=== PATIENT | female | born 1965 | race African-American/Black ===

== ENCOUNTER → 2017-01-14 | Outpatient (CLI) | payer OTHER ==
[~2017-01-14] MED LIST: AMLO10 PO
[2017-01-14 13:10] LABS: BLOOD, URINE NEG (NEG); GLUCOSE,URINE NEG (NEG); HYALINE CAST, URINE 7 /lpf (RARE); KETONE, URINE NEG (NEG); MUCUS URINE FEW /lpf (OCC); NITRITE,URINE NEG (NEG); SQUAMOUS EPITHELIAL CELL URINE 1 /hpf (0-5); URINE COLOR YELLOW (YELLW/STRAW)
[2017-01-14 13:17] LABS: ALT (GPT) 28 U/L (10-53); ANION GAP 8 MEQ/L (5-15); AST (GOT) 30 U/L (15-37); AUTOMATED NEUTROPHIL # 4.3 TH/MM3 (1.8-7.7); BASOPHIL % 0.3 % (0.0-2.0); BLOOD UREA NITROGEN 16 MG/DL (7-18); CHLORIDE 100 MEQ/L (98-107); EOSINOPHIL # 0.2 TH/MM3 (0-0.4); EOSINOPHIL % 2.8 % (0.0-4.0); GLOMERULAR FILTRATION RATE 67 ML/MIN (>89); GLUCOSE,FASTING 117 MG/DL (74-99); HEMATOCRIT 38.2 % (35.0-46.0); HEMO FLAGS DIFF FINAL; LYMPH % 26.4 % (9.0-44.0); LYMPHOCYTE # 1.8 TH/MM3 (1.0-4.8); MEAN CELL VOLUME 91.9 FL (80.0-100.0); MEAN CORPUSCULAR HEMOGLOBIN 30.5 PG (27.0-34.0); MEAN CORPUSCULAR HGB CONC 33.2 % (32.0-36.0); MONO % 7.2 % (0.0-8.0); NEUT % 63.3 % (16.0-70.0); PLATELET COUNT 314 TH/MM3 (150-450); POTASSIUM 3.4 MEQ/L (3.5-5.1); RED BLOOD COUNT 4.16 MIL/MM3 (4.00-5.30); RED CELL DISTRIBUTION WIDTH 14.6 % (11.6-17.2); SODIUM (NA) 138 MEQ/L (136-145); TRANSFERRIN IRON PROFILE 251 MG/DL (200-360); WHITE BLOOD COUNT 6.8 TH/MM3 (4.0-11.0)
[2017-01-14 13:19] LABS: ALKALINE PHOSPHATASE 90 U/L (45-117); HDL CHOLESTEROL 75.5 MG/DL (40.0-60.0); LDL CHOLESTEROL 77 MG/DL (0-99); TOTAL BILIRUBIN ADULT 0.4 MG/DL (0.2-1.0)
== END ==
LOC: PLAB 08:13
PROVIDERS: ATTEND Family Medicine
DX: I10 Essential (primary) hypertension (principal); E78.4 Other hyperlipidemia; D64.9 Anemia, unspecified; Z12.11 Encounter for screening for malignant neoplasm of colon
CPT/HCPCS: 80053; 80061; 81001; 83540; 83550; 85025

== ENCOUNTER → 2017-02-22 | Outpatient (CLI) | payer OTHER ==
[2017-02-22 08:50] LABS: POTASSIUM 3.8 MEQ/L (3.5-5.1)
[2017-02-22 08:56] LABS: BICARBONATE 30.2 MEQ/L (21.0-32.0)
== END ==
LOC: PLAB 07:11
PROVIDERS: ATTEND Family Medicine
DX: R79.89 Other specified abnormal findings of blood chemistry (principal); E87.6 Hypokalemia
CPT/HCPCS: 80051; 82565

== ENCOUNTER → 2017-02-23 | Outpatient (CLI) | payer OTHER ==
[2017-02-23 17:35] LABS: ANION GAP 8 MEQ/L (5-15); AST (GOT) 18 U/L (15-37); BICARBONATE 31.3 MEQ/L (21.0-32.0); BLOOD UREA NITROGEN 10 MG/DL (7-18); CHLORIDE 103 MEQ/L (98-107); GLOMERULAR FILTRATION RATE 88 ML/MIN (>89); GLUCOSE,FASTING 100 MG/DL (74-99); POTASSIUM 3.7 MEQ/L (3.5-5.1); SODIUM (NA) 142 MEQ/L (136-145)
[2017-02-23 17:38] LABS: ALKALINE PHOSPHATASE 81 U/L (45-117); ALT (GPT) 22 U/L (10-53); TOTAL BILIRUBIN ADULT 0.4 MG/DL (0.2-1.0)
[2017-02-23 17:39] LABS: AUTOMATED NEUTROPHIL # 3.4 TH/MM3 (1.8-7.7); BASOPHIL % 0.3 % (0.0-2.0); EOSINOPHIL # 0.2 TH/MM3 (0-0.4); EOSINOPHIL % 2.7 % (0.0-4.0); HEMATOCRIT 37.8 % (35.0-46.0); HEMO FLAGS DIFF FINAL; LYMPHOCYTE # 1.7 TH/MM3 (1.0-4.8); MEAN CELL VOLUME 89.1 FL (80.0-100.0); MEAN CORPUSCULAR HEMOGLOBIN 28.7 PG (27.0-34.0); MEAN CORPUSCULAR HGB CONC 32.2 % (32.0-36.0); MONO % 5.7 % (0.0-8.0); NEUT % 60.3 % (16.0-70.0); PLATELET COUNT 346 TH/MM3 (150-450); RED BLOOD COUNT 4.24 MIL/MM3 (4.00-5.30); RED CELL DISTRIBUTION WIDTH 13.5 % (11.6-17.2); WHITE BLOOD COUNT 5.6 TH/MM3 (4.0-11.0)
== END ==
LOC: PLAB 14:11
PROVIDERS: ATTEND Family Medicine
DX: R51 Headache (principal)
CPT/HCPCS: 80053; 85025

== ENCOUNTER 2017-10-20 06:26 | Observation (INO) | payer OTHER ==
[~2017-10-20] VITALS: Ht 175.3 cm; Wt 209.0 kg
[2017-10-20] MEDS ORDERED: fentaNYL CITRATE 250 MCG/5 ML AMP ONE (06:51)
[2017-10-20] MEDS ORDERED: ACETAMINOPHEN 1000 MG/100 ML 100 ML IV ONE (06:51)
[2017-10-20] MEDS ORDERED: BUPIVACAINE/EPINEPHRINE 0.25% 50 ML VIAL ONE (06:59)
[2017-10-20] MEDS ORDERED: POVIDONE IODINE 5% (ANTISEPSIS KIT) 4 APPLICATIONS EACH NARE PRN (07:00)
[2017-10-20] MEDS ORDERED: LACTATED RINGER'S 1000 ML IV PRN (07:00)
[2017-10-20] MEDS ORDERED: METOPROLOL TARTRATE 25 MG TAB PO PRN (07:00)
[2017-10-20] MEDS ORDERED: CHLORHEXIDINE GLUCONATE 2 % 1 PACK (2 CLOTHS) TOPICAL PRN (07:00)
[2017-10-20] MEDS ORDERED: LISI-519 PO (07:32)
[2017-10-20] MEDS ORDERED: ceFAZolin 2 GM PREMIX 50 ML ONE (07:46)
[2017-10-20 08:18] LABS: AUTOMATED NEUTROPHIL # 3.9 TH/MM3 (1.8-7.7); BASOPHIL % 0.2 % (0.0-2.0); EOSINOPHIL # 0.1 TH/MM3 (0-0.4); EOSINOPHIL % 2.3 % (0.0-4.0); HEMATOCRIT 36.1 % (35.0-46.0); HEMOGLOBIN 11.7 GM/DL (11.6-15.3); LYMPH % 27.5 % (9.0-44.0); LYMPHOCYTE # 1.7 TH/MM3 (1.0-4.8); MEAN CELL VOLUME 91.9 FL (80.0-100.0); MEAN CORPUSCULAR HEMOGLOBIN 29.8 PG (27.0-34.0); MEAN CORPUSCULAR HGB CONC 32.4 % (32.0-36.0); MEAN PLATELET VOLUME 8.1 FL (7.0-11.0); MONO % 6.8 % (0.0-8.0); MONOCYTE # 0.4 TH/MM3 (0-0.9); NEUT % 63.2 % (16.0-70.0); PLATELET COUNT 294 TH/MM3 (150-450); RED BLOOD COUNT 3.93 MIL/MM3 (4.00-5.30); RED CELL DISTRIBUTION WIDTH 14.6 % (11.6-17.2); WHITE BLOOD COUNT 6.2 TH/MM3 (4.0-11.0)
[2017-10-20 08:22] LABS: TOTAL BILIRUBIN ADULT 0.4 MG/DL (0.2-1.0); TOTAL PROTEIN 7.7 GM/DL (6.4-8.2)
[2017-10-20 08:26] LABS: ALBUMIN 3.1 GM/DL (3.4-5.0); BICARBONATE 30.8 MEQ/L (21.0-32.0); CALCIUM 8.8 MG/DL (8.5-10.1); CREATININE 0.8 MG/DL (0.50-1.00); DIRECT BILIRUBIN ADULT 0.1 MG/DL (0.0-0.2); INDIRECT BILIRUBIN 0.3 MG/DL (0.0-0.8)
[2017-10-20] MEDS ORDERED: DO NOT ADM ANY ANTICOAGULANT DRUGS PRN (11:15)
--- NOTE | 2017-10-20 11:19 | HHI.PR ---
Immediate Post Op Note Procedure Date: Oct 20, 2017 Pre Op Diagnosis: symptomatic cholelithiasis Post Op Diagnosis: same Surgeon: Clyde Li MD Tight Rope Walker(s): see or sheet Procedure: lap matt Findings: distended gallbladder very large stones Complications: none Specimen(s) removed: gallbladder Estimated blood loss: 5cc Anesthesia: General Drains: None Patient to: PACU Patient Condition: Good Clyde Li MD Oct 20, 2017 11:19
[2017-10-20] MEDS ORDERED: ONDANSETRON HCL 4 MG/2 ML VIAL IV PUSH ONE (11:30)
[2017-10-20] MEDS ORDERED: oxyCODONE/ACETAMINOPHEN 5 MG/325 MG TAB PO PRN (11:30)
[2017-10-20] MEDS ORDERED: LACTATED RINGER'S 1000 ML INJ 1,000 ML IV ONE (12:00)
[2017-10-20] MEDS ORDERED: LIDOCAINE HCL 1% PF 5 ML SYRINGE OTHER ONE (12:00)
[2017-10-20] MEDS ORDERED: PROPOFOL 200 MG/20 ML AMP IV ONE (12:00)
[2017-10-20] MEDS ORDERED: ONDANSETRON HCL 4 MG/2 ML VIAL IV ONE (12:00)
[2017-10-20] MEDS ORDERED: ROCURONIUM INJ 50 MG/5 ML SYRINGE IV PUSH ONE (12:00)
[2017-10-20] MEDS ORDERED: DEXAMETHASONE SOD PHOS 4 MG/ML VIAL IV ONE (12:00)
[2017-10-20] MEDS ORDERED: NEOSTIGMINE 5 MG/5 ML SYRINGE IV PUSH ONE (12:00)
[2017-10-20] MEDS ORDERED: PHENYLEPH/NS 1000 MCG/10 ML SYR IV ONE (12:00)
[2017-10-20] MEDS ORDERED: GLYCOPYRROLATE 1 MG/5 ML SYRINGE IV PUSH ONE (12:00)
[2017-10-20] MEDS ORDERED: STERILE WATER FOR INJECTION 20 ML VIAL IV ONE (12:00)
[2017-10-20] MEDS ORDERED: VECURONIUM BROMIDE 20 MG VIAL IV ONE (12:00)
[2017-10-20] MEDS ORDERED: ePHEDrine/NS 25 MG/5 ML SYRINGE IV ONE (12:00)
[2017-10-20] MEDS ORDERED: *morphine SULFATE 4 MG/ML PERIprocedure ONLY ONE ×2 (12:10→12:58)
[2017-10-20] MEDS ORDERED: *RESP: ALBUTEROL 2.5 MG/3 ML NEB (PRN) PERIprocedural Use ONLY NEB ONE (12:47)
[2017-10-20] MEDS ORDERED: RESP: ALBUTEROL 2.5 MG/3 ML NEB (PRN) NEB (15:00)
[2017-10-20] MEDS ORDERED: MORPHINE SULFATE 2 MG/ML INJ IV PUSH PRN (15:00)
[2017-10-20] MEDS ORDERED: SODIUM CHLORIDE 0.9% FLUSH 10 ML FLUSH IV FLUSH PRN (15:00)
[2017-10-20 16:00] VITALS: BP 134/72; PULSE 73; RESP 18; TEMP 96.9; O2SAT 96
[2017-10-20] MEDS ORDERED: ACETAMINOPHEN/HYDROcodone 325 MG/5 MG TAB PO PRN ×2 (16:45)
--- NOTE | 2017-10-20 17:01 | RADRPT ---
EXAM DATE/TIME: 10/20/2017 13:19 [facility] COMPARISON: CHEST PA & LAT, March 27, 2016, 7:27. INDICATIONS : Short of breath post Lap [place] MEDICAL HISTORY : Hypertension. Diabetes mellitus type II. SURGICAL HISTORY : Cholecystectomy. ENCOUNTER: Initial ACUITY: 1 day PAIN SCORE: 0/10 LOCATION: chest FINDINGS: The heart is at the upper limits of normal in size. The lungs are clear without evidence of pneumotho rax. The osseous structures are intact. CONCLUSION: 1. No pneumothorax identified. The lungs are clear. Armando Cain MD on October 20, 2017 at 16:58 Board Certified Radiologist. This report was verified electronically.
[2017-10-20] MEDS: SODIUM CHLORIDE 0.9% FLUSH 10 ML FLUSH IV FLUSH SCH (19:32)
[2017-10-20 20:00] VITALS: BP 133/66; PULSE 89; RESP 18; TEMP 98.9; O2SAT 97
--- NOTE | 2017-10-20 20:34 | EKG ---
Date Performed: 10/20/2017 Time Performed: 06:49:43 PTAGE: 52 years EKG: Sinus rhythm NONSPECIFIC ST & T-WAVE ABNORMALITY ABNORMAL ECG Since the prior tracing, there has been no signific ant change PREVIOUS TRACING : 03/27/2016 07.50 DOCTOR: Kosta Lion Interpretating Date/Time 10/20/2017 20:24:12
[2017-10-21] VITALS: BP 134/76; PULSE 82; RESP 19; TEMP 98.6; O2SAT 92
[2017-10-21 04:00] VITALS: BP 140/75; PULSE 81; RESP 18; TEMP 96.6; O2SAT 94
[2017-10-21 06:10] LABS: BICARBONATE 31.8 MEQ/L (21.0-32.0); CALCIUM 8.9 MG/DL (8.5-10.1); CREATININE 0.8 MG/DL (0.50-1.00)
[2017-10-21 06:21] LABS: AUTOMATED NEUTROPHIL # 15.3 TH/MM3 (1.8-7.7); BASOPHIL % 0.1 % (0.0-2.0); EOSINOPHIL % 0.1 % (0.0-4.0); HEMATOCRIT 37.5 % (35.0-46.0); HEMOGLOBIN 12.3 GM/DL (11.6-15.3); LYMPH % 4.3 % (9.0-44.0); LYMPHOCYTE # 0.7 TH/MM3 (1.0-4.8); MEAN CELL VOLUME 92.5 FL (80.0-100.0); MEAN CORPUSCULAR HEMOGLOBIN 30.3 PG (27.0-34.0); MEAN CORPUSCULAR HGB CONC 32.7 % (32.0-36.0); MEAN PLATELET VOLUME 8.3 FL (7.0-11.0); MONO % 3.1 % (0.0-8.0); MONOCYTE # 0.5 TH/MM3 (0-0.9); NEUT % 92.4 % (16.0-70.0); PLATELET COUNT 263 TH/MM3 (150-450); RED BLOOD COUNT 4.05 MIL/MM3 (4.00-5.30); RED CELL DISTRIBUTION WIDTH 14.5 % (11.6-17.2); WHITE BLOOD COUNT 16.6 TH/MM3 (4.0-11.0)
[2017-10-21 08:00] VITALS: BP 116/65; PULSE 80; RESP 18; TEMP 96.8; O2SAT 94
[2017-10-21 08:06] VITALS: O2SAT 94
[2017-10-21] MEDS: SODIUM CHLORIDE 0.9% FLUSH 10 ML FLUSH IV FLUSH SCH (08:22)
[2017-10-21] MEDS ORDERED: PANTOPRAZOLE SODIUM 40 MG VIAL IV PUSH SCH (09:00)
[2017-10-21] MEDS ORDERED: INFLUENZA VIRUS VACCINE (QUADRIVALENT) 0.5 ML SYR IM ONE (10:00)
[2017-10-21] MEDS ORDERED: PNEUMOCOCCAL POLYVALENT INJ 25 MCG/0.5 ML SYR IM ONE (10:00)
[2017-10-21 12:00] VITALS: BP 148/73; PULSE 82; RESP 19; TEMP 97.3; O2SAT 96
[2017-10-21 16:00] VITALS: BP 121/67; PULSE 83; RESP 19; TEMP 96.6
[2017-10-21] MEDS ORDERED: HYDR-3516 PO ×2 (16:24→16:27)
--- NOTE | 2017-10-21 16:24 | HHI.DS ---
Discharge Summary Admission Date Oct 20, 2017 at 13:12 Discharge Date: Oct 21, 2017 Admitting Diagnosis Brief History 52-year-old female status post laparoscopic cholecystectomy CBC/BMP: 10/21/17 0345 10/21/17 0345 Significant Findings Laboratory Tests Test 10/20/17 07:40 10/21/17 03:45 Red Blood Count 3.93 MIL/MM3 (4.00-5.30) Random Glucose 117 MG/DL (74-106) 108 MG/DL (74-106) Albumin 3.1 GM/DL (3.4-5.0) White Blood Count 16.6 TH/MM3 (4.0-11.0) Neutrophils (%) (Auto) 92.4 % (16.0-70.0) Lymphocytes (%) (Auto) 4.3 % (9.0-44.0) Neutrophils # (Auto) 15.3 TH/MM3 (1.8-7.7) Lymphocytes # (Auto) 0.7 TH/MM3 (1.0-4.8) Potassium Level 5.3 MEQ/L (3.5-5.1) PE at Discharge alert and awake Cardio: RRR Resp: CTAB Abd: lap sites c/d/i Hospital Course This is a 52 year old female POD1 laparoscopic cholecystectomy. The patient was able to tolerate a regular diet. The patient's pain was controlled using oral pain medications. She was fully weaned from nasal cannula oxygen. She will follow up in the office. Pt Condition on Discharge: Good Discharge Disposition: Discharge Home Discharge Instructions DIET: Follow Instructions for: As Tolerated, No Restrictions Activities you can perform: See Additionl Instruction Other Activity Instructions: no heavy lifting >15 lbs, ok to shower tomorrow no bath tub Lori Llanos Oct 21, 2017 16:24
--- NOTE | 2017-10-22 08:36 | MP ---
cc: CLYDE LI MD DATE OF SURGERY: 10/22/2017. PREOPERATIVE DIAGNOSIS: Symptomatic cholelithiasis. POSTOPERATIVE DIAGNOSIS: Symptomatic cholelithiasis. OPERATIVE PROCEDURE PERFORMED: Laparoscopic cholecystectomy SURGEON: Dr. Clyde Li. DIESEL ENGINE I PIPE FITTER: See OR sheet ANESTHESIA: General endotracheal anesthesia. FLUIDS: See anesthesia sheet. ESTIMATED BLOOD LOSS: 5 cc. DRAINS: None. COMPLICATIONS: None. WOUND CLASSIFICATION: Clean / contaminated. FINDINGS: Fatty liver. very large multiple gallstones within the gallbladder. SPECIMEN: Gallbladder. INDICATIONS FOR THE PROCEDURE: The patient is a 52-year-old female who presents with morbid obesity and symptomatic cholelithiasis. She has noted significant history of right upper quadrant pain that has been going on for some time now. Decision made for a laparoscopic cholecystectomy. DESCRIPTION OF THE PROCEDURE IN DETAIL: The patient was taken to the operating room suite and placed in the supine position. She was prepped and draped in the usual sterile fashion after induction with general endotracheal anesthesia. A brief time out was done stating the correct patient, procedure and surgical site and we were all in agreement with this. Attention first directed to the umbilicus superiorly. A 5 mm incision was made. Local anesthetic injected. The Visiport operative scope was introduced and placed into the abdomen safely. The abdomen was insufflated to 50 mm pneumoperitoneum. The cursory inspection showed no evidence of injury. The patient was placed in reverse Trendelenburg. Three other ports were placed: One 12 mm gastric followed by two right subcostal 5 mm ports. A fifth port was placed actually right lower quadrant. This was to assist in retraction. The patient did have a very large fatty liver and a very large omentum as well as distended gallbladder and multiple large gallstones. Fundus was grasped and retracted cephalad. Adhesions taken down the gallbladder. Gallbladder was mobilized to the infundibulum down to the cystic duct with hook electrocautery and [place] grasper. The cystic duct was dissected out and two clips were placed proximally and one distally and this was used to transect the cystic duct. The cystic artery was also identified. Two clips were placed proximally and bovie electrocautery used to transect the cystic artery. The cystic artery was taken off the gallbladder fossa with hook Bovie electrocautery. Hemostasis was obtained. Gallbladder was placed in the EndoCatch bag and removed from the abdomen in the epigastric port. Hemostasis was noted and a pretty significant fatty liver. The epigastric port was closed with #0 Vicryl x2 with a gore suture passer device. Local anesthetic injected. Pneumoperitoneum removed. The ports were removed. The ports were closed with 4-0 subcuticular and sterile dressing placed. The patient tolerated the procedure well with no intraoperative complications. All lap and instrument counts were correct at the end of the procedure. The patient was extubated and taken stable to the post-anesthesia care unit. MD ASTER Antunez/GUSTAVO /1:34 PM /8:21 AM
== END 2017-10-21 18:46 | disposition home or self-care (01) ==
LOC: HSDC 06:26 → HSDI 13:12 → N07A 15:47
PROVIDERS: ADMIT Surgery; ATTEND Surgery
DX: K80.10 Calculus of gallbladder with chronic cholecystitis without obstruction (principal); R06.02 Shortness of breath; R94.31 Abnormal electrocardiogram [ECG] [EKG]; I10 Essential (primary) hypertension; E11.9 Type 2 diabetes mellitus without complications
CPT/HCPCS: 00790; 47562; 71045; 80048; 80076; 85025; 88304; 93005; 94664; 96374; C9113; G0378; J0131; J0690; J1100; J2270; J2370; J2405; J2710; J3010; J7120; J7613

== ENCOUNTER 2017-11-02 01:06 | Inpatient (IN) | payer OTHER ==
[~2017-11-02] VITALS: Ht 175.3 cm; Wt 182.6 kg
[2017-11-02] VITALS (13 sets, daily range): BP systolic 129–208; BP diastolic 63–111; PULSE 60–85; RESP 18–24; TEMP 98.2–98.7; O2SAT 91–99
[~2017-11-02 01:06] MED LIST changes: -AMLO10 PO; +LISI-519 PO
[2017-11-02] MEDS ORDERED: SODIUM CHLORIDE 0.9% FLUSH 10 ML FLUSH IVF PRN (03:45)
--- NOTE | 2017-11-02 04:37 | RADRPT ---
EXAM DATE/TIME: 11/02/2017 04:05 [facility] COMPARISON: CHEST SINGLE AP, October 20, 2017, 13:19. INDICATIONS : Shortness of breath. MEDICAL HISTORY : Hypertension. Diabetes mellitus type II. SURGICAL HISTORY : None. ENCOUNTER: Initial ACUITY: 1 day PAIN SCORE: 0/10 LOCATION: Bilateral chest FINDINGS: A single view of the chest demonstrates the lungs to be symmetrically aerated without evidence of mas s, infiltrate or effusion. The cardiomediastinal contours are unremarkable. Osseous structures are intact. CONCLUSION: No acute disease. Hosea Lopez MD on November 02, 2017 at 4:35 Board Certified Radiologist. This report was verified electronically.
[2017-11-02 05:56] LABS: AUTOMATED NEUTROPHIL # 6.3 TH/MM3 (1.8-7.7); BASOPHIL % 0.5 % (0.0-2.0); EOSINOPHIL # 0.3 TH/MM3 (0-0.4); EOSINOPHIL % 2.7 % (0.0-4.0); HEMATOCRIT 36.5 % (35.0-46.0); HEMOGLOBIN 11.9 GM/DL (11.6-15.3); LYMPHOCYTE # 1.9 TH/MM3 (1.0-4.8); MEAN CELL VOLUME 91.4 FL (80.0-100.0); MEAN CORPUSCULAR HEMOGLOBIN 29.9 PG (27.0-34.0); MEAN CORPUSCULAR HGB CONC 32.8 % (32.0-36.0); MEAN PLATELET VOLUME 8.1 FL (7.0-11.0); MONO % 7.9 % (0.0-8.0); MONOCYTE # 0.7 TH/MM3 (0-0.9); NEUT % 67.9 % (16.0-70.0); PLATELET COUNT 306 TH/MM3 (150-450); RED BLOOD COUNT 3.99 MIL/MM3 (4.00-5.30); RED CELL DISTRIBUTION WIDTH 14.4 % (11.6-17.2); WHITE BLOOD COUNT 9.3 TH/MM3 (4.0-11.0)
--- NOTE | 2017-11-02 06:12 | PD ---
HPI . Respiratory symptoms Chief Complaint: Respiratory Symptoms Time Seen by Provider: 03:42 Travel History International Travel<30 days: No Contact w/Intl Traveler<30days: No Traveled to known affect area: No History of Present Illness HPI 52-year-old female status post recent laparoscopic cholecystectomy, complains of having right lower chest pain, sharp, worse with deep breath, with associated shortness of breath and air hunger. The patient also notes having right calf pain and some right lower extremity swelling recently as well. Denies fever chills sweats, denies cough. PFSH Past Medical History Narrative Medical Past medical history reviewed Cancer: No Cardiovascular Problems: Yes Diabetes: No Diminished Hearing: No Endocrine: No Genitourinary: No Hepatitis: No Hiatal Hernia: No Hypertension: Yes Immune Disorder: No Musculoskeletal: No Neurologic: No Psychiatric: No Reproductive: No Respiratory: No Immunizations Current: Yes Thyroid Disease: No Tetanus Vaccination: Unknown Influenza Vaccination: Yes ?: Not Past Surgical History Abdominal Surgery: No Cardiac Surgery: No Cholecystectomy: Yes Ear Surgery: No Endocrine Surgery: No Eye Surgery: No Genitourinary Surgery: Yes (lap matt) Gynecologic Surgery: Yes (Complete hysterectomy) Hysterectomy: Yes Joint Replacement: No Neurologic Surgery: Yes (Back surgery, ruptured disc lombar area (2001)) Oral Surgery: No Pacemaker: No Thoracic Surgery: No Other Surgery: Yes Social History Alcohol Use: No Tobacco Use: No Substance Use: No Allergies-Medications (Allergen,Severity, Reaction): Coded Allergies: No Known Allergies (Verified Allergy, Unknown, 11/02/17) Reported Meds & Prescriptions Reported Meds & Active Scripts Active Reported Lisinopril 5 Mg Tab 5 Mg PO DAILY Narrative Medication Allergies medications reviewed Review of Systems Except as stated in HPI: all other systems reviewed are Neg General / Constitutional: No: Fever Eyes: No: Visual changes HENT: No: Headaches Cardiovascular: Positive: Chest Pain or Discomfort Respiratory: Positive: Shortness of Breath Gastrointestinal: No: Abdominal Pain Genitourinary: No: Dysuria Musculoskeletal: Positive: Cramping, Edema, No: Pain Skin: No Rash Neurologic: No: Weakness Psychiatric: No: Depression Endocrine: No: Polydipsia Hematologic/Lymphatic: No: Easy Bruising Physical Exam Narrative GENERAL: Awake alert oriented 3 no acute distress. Vital signs afebrile normal and stable. Oxygen saturation 90-90% on room air. SKIN: Warm and dry. Color is normal the diaphoresis sinus or pallor HEAD: Atraumatic. Normocephalic. EYES: Pupils equal and round. No scleral icterus. No injection or drainage. ENT: No nasal bleeding or discharge. Mucous membranes pink and moist. NECK: Trachea midline. No JVD. Supple nontender full range of motion CARDIOVASCULAR: Regular rate and rhythm. S1-S2 no murmurs or gallops RESPIRATORY: No accessory muscle use. Clear to auscultation. Breath sounds equal bilaterally. GASTROINTESTINAL: Abdomen soft, non-tender, nondistended. Hepatic and splenic margins not palpable. Morbidly obese difficult exam MUSCULOSKELETAL: Extremities without clubbing, cyanosis, or edema. No obvious deformities. NEUROLOGICAL: Awake and alert. No obvious cranial nerve deficits. Motor grossly within normal limits. Five out of 5 muscle strength in the arms and legs. Normal speech. PSYCHIATRIC: Appropriate mood and affect; insight and judgment normal. Data Data Last Documented VS Vital Signs Date Time Temp Pulse Resp B/P (MAP) Pulse Ox O2 Delivery O2 Flow Rate FiO2 11/02/17 05:44 68 19 189/79 (115) 96 Room Air 11/02/17 01:13 98.7 Orders Orders Electrocardiogram (11/02/17 03:42) Ckmb (Isoenzyme) Profile (11/02/17 03:42) Complete Blood Count With Diff (11/02/17 03:42) Comprehensive Metabolic Panel (11/02/17 03:42) D-Dimer (11/02/17 03:42) Magnesium (Mg) (11/02/17 03:42) Prothrombin Time / Inr (Pt) (11/02/17 03:42) Act Partial Throm Time (Ptt) (11/02/17 03:42) Troponin I (11/02/17 03:42) Lipase (11/02/17 03:42) Chest, Single Ap (11/02/17 03:42) Ecg Monitoring (11/02/17 03:42) Bilateral Bp Monitoring (11/02/17 03:42) Iv Access Insert/Monitor (11/02/17 03:42) Oximetry (11/02/17 03:42) Sodium Chloride 0.9% Flush (Ns Flush) (11/02/17 03:45) CKMB (11/02/17 04:30) CKMB% (11/02/17 04:30) Ct Pulmonary Angiogram (11/02/17 ) Labs Laboratory Tests Test 11/02/17 04:30 White Blood Count 9.3 TH/MM3 Red Blood Count 3.99 MIL/MM3 Hemoglobin 11.9 GM/DL Hematocrit 36.5 % Mean Corpuscular Volume 91.4 FL Mean Corpuscular Hemoglobin 29.9 PG Mean Corpuscular Hemoglobin Concent 32.8 % Red Cell Distribution Width 14.4 % Platelet Count 306 TH/MM3 Mean Platelet Volume 8.1 FL Neutrophils (%) (Auto) 67.9 % Lymphocytes (%) (Auto) 21.0 % Monocytes (%) (Auto) 7.9 % Eosinophils (%) (Auto) 2.7 % Basophils (%) (Auto) 0.5 % Neutrophils # (Auto) 6.3 TH/MM3 Lymphocytes # (Auto) 1.9 TH/MM3 Monocytes # (Auto) 0.7 TH/MM3 Eosinophils # (Auto) 0.3 TH/MM3 Basophils # (Auto) 0.0 TH/MM3 CBC Comment DIFF FINAL Differential Comment Prothrombin Time 10.4 SEC Prothromb Time International Ratio 1.0 RATIO Activated Partial Thromboplast Time 25.3 SEC D-Dimer Quantitative (PE/DVT) 1.74 MG/L FEU Blood Urea Nitrogen 12 MG/DL Creatinine 0.89 MG/DL Random Glucose 107 MG/DL Total Protein 7.8 GM/DL Albumin 3.2 GM/DL Calcium Level 9.0 MG/DL Magnesium Level 2.2 MG/DL Alkaline Phosphatase 77 U/L Aspartate Amino Transf (AST/SGOT) 11 U/L Alanine Aminotransferase (ALT/SGPT) 11 U/L Total Bilirubin 0.6 MG/DL Sodium Level 140 MEQ/L Potassium Level 3.8 MEQ/L Chloride Level 102 MEQ/L Carbon Dioxide Level 29.8 MEQ/L Anion Gap 8 MEQ/L Estimat Glomerular Filtration Rate 80 ML/MIN Total Creatine Kinase 151 U/L Creatine Kinase MB 0.8 NG/ML Troponin I LESS THAN 0.02 NG/ML Lipase 78 U/L MDM Medical Decision Making Medical Screen Exam Complete: Yes Emergency Medical Condition: Yes Medical Record Reviewed: Yes Differential Diagnosis Shortness of breath, pleurisy, pulmonary embolus, calf strain, DVT Narrative Course EKG normal sinus rhythm at 70 bpm, diffusely flattened T waves, otherwise no ischemic changes Chest x-ray no acute infiltrates Laboratory examinations resulted, patient has positive d-dimer at 1.74. CT pulmonary angiogram Case signed out to oncoming ED attending, pending CT pulmonary angiogram Saroj Santana MD Nov 02, 2017 06:12
[2017-11-02 06:14] LABS: PROTHROMBIN TIME - PATIENT 10.4 SEC (9.8-11.6)
[2017-11-02 06:17] LABS: ALBUMIN 3.2 GM/DL (3.4-5.0); AST (GOT) 11 U/L (15-37); BICARBONATE 29.8 MEQ/L (21.0-32.0); BLOOD UREA NITROGEN 12 MG/DL (7-18); CHLORIDE 102 MEQ/L (98-107); CREATININE 0.89 MG/DL (0.50-1.00); GLOMERULAR FILTRATION RATE 80 ML/MIN (>89); GLUCOSE,RANDOM 107 MG/DL (74-106); MAGNESIUM 2.2 MG/DL (1.5-2.5); SODIUM (NA) 140 MEQ/L (136-145)
[2017-11-02 06:18] LABS: ALT (GPT) 11 U/L (10-53)
[2017-11-02 06:22] LABS: ALKALINE PHOSPHATASE 77 U/L (45-117); TOTAL BILIRUBIN ADULT 0.6 MG/DL (0.2-1.0); TOTAL PROTEIN 7.8 GM/DL (6.4-8.2); TROPONIN I LESS THAN 0.02 NG/ML (0.02-0.05)
[2017-11-02 06:31] LABS: D-DIMER 1.74 MG/L FEU (0.00-0.50)
[2017-11-02] MEDS ORDERED: IOHEXOL 350 MG/ML 10 ML VIAL (for RAD DIAG) IVCONTRAST ONE (07:36)
--- NOTE | 2017-11-02 07:50 | EKG ---
Date Performed: 11/02/2017 Time Performed: 05:18:00 PTAGE: 52 years EKG: Sinus rhythm NONSPECIFIC T-WAVE ABNORMALITY ABNORMAL ECG NO PREVIOUS TRACING DOCTOR: Nestor Aguilera Interpretating Date/Time 11/02/2017 07:49:34
--- NOTE | 2017-11-02 07:51 | RADRPT ---
EXAM DATE/TIME: 11/02/2017 07:29 [facility] COMPARISON: No previous studies available for comparison. INDICATIONS : Shortness of breath. IV CONTRAST: 79 cc Omnipaque 350 (iohexol) IV RADIATION DOSE: 10.89 CTDIvol (mGy) MEDICAL HISTORY : Cardiovascular disease. Hyperthyroidism. SURGICAL HISTORY : None. ENCOUNTER: Initial ACUITY: 1 day PAIN SCALE: 0/10 LOCATION: chest TECHNIQUE: Volumetric scanning of the chest was performed using a pulmonary embolism protocol MIP images were re constructed. Using automated exposure control and adjustment of the mA and/or kV according to patien t size, radiation dose was kept as low as reasonably achievable to obtain optimal diagnostic quality images. DICOM format image data is available electronically for review and comparison. Follow-up recommendations for detected pulmonary nodules are based at a minimum on nodule size and pa tient risk factors according to Fleischner Society Guidelines. FINDINGS: PULMONARY ARTERIES: There is a filling defect in the branch of the right pulmonary supplying the posterior right lower dustin ng. This characteristic of a pulmonary embolus. There is opacification involving the rest of the pulm onary arteries. LUNGS: There is focal parenchymal consolidation in the posterior right lower lung. Otherwise, the rest lung early are grossly clear. PLEURAE: There is no pleural thickening or pleural effusion. MEDIASTINUM: There is good visualization of the great vessels of the middle mediastinum. No evidence of mediastin al or hilar adenopathy/mass. MUSCULOSKELETAL: Within normal limits for patient age. MISCELLANEOUS: The visualized upper abdominal organs demonstrate no acute abnormality. CONCLUSION: 1. There is a filling defect in a branch of the right pulmonary artery feeding the posterior right lo wer lung characteristic of a pulmonary embolus. 2. Focal parenchymal consolidation in the posterior right lower lung. Given the above finding this ma ybe a focal pulmonary infarct. Modesto Fenton MD on November 02, 2017 at 7:45 Board Certified Radiologist. This report was verified electronically.
[2017-11-02] MEDS ORDERED: HEPARIN SODIUM - IV 10,000 UNITS/10 ML VIAL IV PUSH ONE (08:30)
[2017-11-02] MEDS: HEPARIN-D5W 25,000 U/250 ML 250 ML IV PRN ×2 (08:41→21:17)
--- NOTE | 2017-11-02 09:07 | PD ---
Physical Exam Narrative Patient signed out to me by Dr. Santana, please see his documentation for complete details. Briefly, patient is a 52 year old female who comes in complaining of SOB. She recently had gallbladder surgery and has been mostly in bed since then. Exam shows lungs CTA. Data Data Last Documented VS Vital Signs Date Time Temp Pulse Resp B/P (MAP) Pulse Ox O2 Delivery O2 Flow Rate FiO2 11/02/17 07:13 84 19 188/81 (116) 98 Nasal Cannula 2.00 11/02/17 01:13 98.7 Orders Orders Electrocardiogram (11/02/17 03:42) Ckmb (Isoenzyme) Profile (11/02/17 03:42) Complete Blood Count With Diff (11/02/17 03:42) Comprehensive Metabolic Panel (11/02/17 03:42) D-Dimer (11/02/17 03:42) Magnesium (Mg) (11/02/17 03:42) Prothrombin Time / Inr (Pt) (11/02/17 03:42) Act Partial Throm Time (Ptt) (11/02/17 03:42) Troponin I (11/02/17 03:42) Lipase (11/02/17 03:42) Chest, Single Ap (11/02/17 03:42) Ecg Monitoring (11/02/17 03:42) Bilateral Bp Monitoring (11/02/17 03:42) Iv Access Insert/Monitor (11/02/17 03:42) Oximetry (11/02/17 03:42) Sodium Chloride 0.9% Flush (Ns Flush) (11/02/17 03:45) CKMB (11/02/17 04:30) CKMB% (11/02/17 04:30) Ct Pulmonary Angiogram (11/02/17 ) Us Leg Venous Doppler (11/02/17 ) Iohexol 350 Inj (Omnipaque 350 Inj) (11/02/17 07:36) Heparin Inj (Heparin Inj) (11/02/17 08:30) Heparin-D5w 25,000 U/250 Ml (Heparin-D5w (11/02/17 08:30) Occult Blood (Hemoccult) Stool (11/02/17 08:24) Admit Order (Ed Use Only) (11/02/17 ) Labs Laboratory Tests Test 11/02/17 04:30 White Blood Count 9.3 TH/MM3 Red Blood Count 3.99 MIL/MM3 Hemoglobin 11.9 GM/DL Hematocrit 36.5 % Mean Corpuscular Volume 91.4 FL Mean Corpuscular Hemoglobin 29.9 PG Mean Corpuscular Hemoglobin Concent 32.8 % Red Cell Distribution Width 14.4 % Platelet Count 306 TH/MM3 Mean Platelet Volume 8.1 FL Neutrophils (%) (Auto) 67.9 % Lymphocytes (%) (Auto) 21.0 % Monocytes (%) (Auto) 7.9 % Eosinophils (%) (Auto) 2.7 % Basophils (%) (Auto) 0.5 % Neutrophils # (Auto) 6.3 TH/MM3 Lymphocytes # (Auto) 1.9 TH/MM3 Monocytes # (Auto) 0.7 TH/MM3 Eosinophils # (Auto) 0.3 TH/MM3 Basophils # (Auto) 0.0 TH/MM3 CBC Comment DIFF FINAL Differential Comment Prothrombin Time 10.4 SEC Prothromb Time International Ratio 1.0 RATIO Activated Partial Thromboplast Time 25.3 SEC D-Dimer Quantitative (PE/DVT) 1.74 MG/L FEU Blood Urea Nitrogen 12 MG/DL Creatinine 0.89 MG/DL Random Glucose 107 MG/DL Total Protein 7.8 GM/DL Albumin 3.2 GM/DL Calcium Level 9.0 MG/DL Magnesium Level 2.2 MG/DL Alkaline Phosphatase 77 U/L Aspartate Amino Transf (AST/SGOT) 11 U/L Alanine Aminotransferase (ALT/SGPT) 11 U/L Total Bilirubin 0.6 MG/DL Sodium Level 140 MEQ/L Potassium Level 3.8 MEQ/L Chloride Level 102 MEQ/L Carbon Dioxide Level 29.8 MEQ/L Anion Gap 8 MEQ/L Estimat Glomerular Filtration Rate 80 ML/MIN Total Creatine Kinase 151 U/L Creatine Kinase MB 0.8 NG/ML Troponin I LESS THAN 0.02 NG/ML Lipase 78 U/L MDM Supervised Visit with DEBBIE: No Narrative Course CTA is positive for a PE and possible pulmonary infarct. Patient started on Heparin and admitted for further management. Diagnosis Primary Impression: PE Admitting Information Admitting Physician Requests: Admit Scripts Apixaban (Eliquis) 5 Mg Tab 5 MG PO BID for PE for 30 Days, #60 TAB 3 Refills Prov: Dagoberto Tejada MD 11/04/17 Apixaban (Eliquis) 5 Mg Tab 10 MG PO BID for PE for 5 Days, #20 TAB Prov: Dagoberto Tejada MD 11/04/17 Oxygen (O2) (Oxygen (O2)) Device LITER IMELDA.CANULA CONTINUOUS for Prevent Hypoxemia, #2 Oxygen Concentrator Portable Gaseous 2 L/min via Nasal Canula Continuous For 99 months Prov: Dagoberto Tejada MD 11/04/17 Dina Layton MD Nov 02, 2017 09:07
[2017-11-02] MEDS ORDERED: SODIUM CHLORIDE 0.9% FLUSH 10 ML FLUSH IV FLUSH PRN (09:15)
[2017-11-02] MEDS ORDERED: NALOXONE HCL 0.4 MG/ML AMP IV PUSH PRN (09:15)
--- NOTE | 2017-11-02 09:29 | RADRPT ---
EXAM DATE/TIME: 11/02/2017 07:57 [facility] COMPARISON: No previous studies available for comparison. INDICATIONS : Right leg swelling. MEDICAL HISTORY : Hypertension. Ruptured disc lumbar. SURGICAL HISTORY : Cholecystectomy. Hysterectomy. Back surgery. ENCOUNTER: Initial ACUITY: 1 day PAIN SCORE: 10/10 LOCATION: Right leg. TECHNIQUE: Venous ultrasound of the leg was performed from the inguinal ligament to the proximal calf. Real-michael e, color Doppler and spectral tracing, compression and augmentation techniques were used. FINDINGS: There is normal compressibility of the deep venous system from the inguinal region to the proximal ca lf. No echogenic clot is seen in the lumen of the common femoral, femoral, popliteal, and posterior tibial veins. There is a normal response of the venous system to proximal and distal augmentation an d respiration. Popliteal cyst measuring 5.7 x 1.6 cm anechoic with no internal flow. CONCLUSION: Negative for deep venous thrombosis. Damon Morris MD on November 02, 2017 at 9:27 Board Certified Radiologist. This report was verified electronically.
[2017-11-02] MEDS ORDERED: MORPHINE SULFATE 4 MG/ML INJ IV PUSH ONE (09:30)
--- NOTE | 2017-11-02 11:37 | HHI.HP ---
HPI Service [facility] Primary Care Physician Paul Willoughby MD Admission Diagnosis PE, pulmonary infarct Diagnoses: Travel History International Travel<30 Days: No Contact w/Intl Traveler <30 Da: No Traveled to Known Affected Are: No History of Present Illness History from patient, ER physician communication, and review of medical records. Patient reported that on Tuesday, she started having right calf pain. She also has associated shortness of breath. Reports of right upper quadrant abdominal pain and right-sided chest pain when she takes a deep breath. She reports she has had cholecystectomy on October 20, 2017. She stayed overnight at the hospital. She has been home since discharge from hospital until yesterday for every 2017 when she returned back to work. She admits that for the past 10 days or so while she has been home, she has not been moving around much. Only one her right cough started having pain on Tuesday, she started moving around and walking around. In the emergency room, patient's blood pressure was somewhat high in the range of 170s over 90s. However by the time I see the patient, without any intervention, her blood pressure was 139/65. She did miss her home dose of lisinopril this morning. Review of Systems Except as stated in HPI: all other systems reviewed are Neg Past Family Social History Past Medical History Hypertension Obesity Past Surgical History cholecystectomy 10/20/17 hysterectomy back sx Allergies: Coded Allergies: No Known Allergies (Verified Allergy, Unknown, 11/02/17) Family History mother, htn, breast cancer maternal uncles and aunts, diabetic Social History never smoked no etoh abuse, no drugs abuse Physical Exam Vital Signs Vital Signs Date Time Temp Pulse Resp B/P (MAP) Pulse Ox O2 Delivery O2 Flow Rate FiO2 11/02/17 09:35 71 18 174/75 (108) 99 Nasal Cannula 2.00 11/02/17 07:13 84 19 188/81 (116) 98 Nasal Cannula 2.00 11/02/17 05:44 68 19 189/79 (115) 96 Room Air 11/02/17 03:54 79 20 184/79 (114) 96 Room Air 11/02/17 03:53 76 20 181/84 (116) 96 Room Air 11/02/17 03:52 20 96 Room Air 11/02/17 03:41 20 96 Room Air 11/02/17 01:53 77 20 199/111 (140) 97 11/02/17 01:13 98.7 85 24 208/105 (139) 93 Physical Exam GENERAL: This is a well-nourished, well-developed patient, in no apparent distress. Obese. SKIN: No rashes, ecchymoses or lesions. Cool and dry. HEAD: Atraumatic. Normocephalic. No temporal or scalp tenderness. EYES: No scleral icterus. No injection or drainage. ENT: Nose without bleeding, purulent drainage or septal hematoma. Airway patent. NECK: Trachea midline. No JVD CARDIOVASCULAR: Regular rate and rhythm without murmurs, gallops, or rubs. RESPIRATORY: Clear to auscultation. Breath sounds equal bilaterally. No wheezes , rales, or rhonchi. Shallow breathing due to pleuritic chest pain. GASTROINTESTINAL: Abdomen soft, non-tender, nondistended. . No guarding. MUSCULOSKELETAL: Extremities without clubbing, cyanosis, or edema. Right calf tenseness. NEUROLOGICAL: Awake and alert. Motor and sensory grossly within normal limits. Normal speech. Laboratory Laboratory Tests Test 11/02/17 04:30 White Blood Count 9.3 Red Blood Count 3.99 Hemoglobin 11.9 Hematocrit 36.5 Mean Corpuscular Volume 91.4 Mean Corpuscular Hemoglobin 29.9 Mean Corpuscular Hemoglobin Concent 32.8 Red Cell Distribution Width 14.4 Platelet Count 306 Mean Platelet Volume 8.1 Neutrophils (%) (Auto) 67.9 Lymphocytes (%) (Auto) 21.0 Monocytes (%) (Auto) 7.9 Eosinophils (%) (Auto) 2.7 Basophils (%) (Auto) 0.5 Neutrophils # (Auto) 6.3 Lymphocytes # (Auto) 1.9 Monocytes # (Auto) 0.7 Eosinophils # (Auto) 0.3 Basophils # (Auto) 0.0 CBC Comment DIFF FINAL Differential Comment Prothrombin Time 10.4 Prothromb Time International Ratio 1.0 Activated Partial Thromboplast Time 25.3 D-Dimer Quantitative (PE/DVT) 1.74 Blood Urea Nitrogen 12 Creatinine 0.89 Random Glucose 107 Total Protein 7.8 Albumin 3.2 Calcium Level 9.0 Magnesium Level 2.2 Alkaline Phosphatase 77 Aspartate Amino Transf (AST/SGOT) 11 Alanine Aminotransferase (ALT/SGPT) 11 Total Bilirubin 0.6 Sodium Level 140 Potassium Level 3.8 Chloride Level 102 Carbon Dioxide Level 29.8 Anion Gap 8 Estimat Glomerular Filtration Rate 80 Total Creatine Kinase 151 Creatine Kinase MB 0.8 Troponin I LESS THAN 0.02 Lipase 78 Result Diagram: 11/02/170 11/02/17 0430 Imaging Last 48 hours Impressions Chest X-Ray 11/02/17 0342 Signed Impressions: Service Date/Time: Thursday, November 02, 2017 04:05 - CONCLUSION: No acute disease. Hosea Lopez MD Lower Extremity Ultrasound 11/02/17 0000 Signed Impressions: Service Date/Time: Thursday, November 02, 2017 07:57 - CONCLUSION: Negative for deep venous thrombosis. Damon Morris MD CT Angiography 11/02/17 0000 Signed Impressions: Service Date/Time: Thursday, November 02, 2017 07:29 - CONCLUSION: 1. There is a filling defect in a branch of the right pulmonary artery feeding the posterior right lower lung characteristic of a pulmonary embolus. 2. Focal parenchymal consolidation in the posterior right lower lung. Given the above finding this maybe a focal pulmonary infarct. Modesto Fenton MD [place] VTE Risk Assessment Caprini VTE Risk Assessment: Mod/High Risk (score >= 2) Caprini Risk Assessment Model Point Value = 1 Point Value = 2 Point Value = 3 Point Value = 5 Age 41-60 Minor surgery BMI > 25 kg/m2 Swollen legs Varicose veins or History of unexplained or recurrent spontaneous Oral contraceptives or hormone replacement Sepsis (< 1 month) Serious lung disease, including pneumonia (< 1 month) Abnormal pulmonary function Acute myocardial infarction Congestive heart failure (< 1 month) History of inflammatory bowel disease Medical patient at bed rest Age 61-74 Arthroscopic surgery Major open surgery (> 45 min) Laparoscopic surgery (> 45 min) Malignancy Confined to bed (> 72 hours) Immobilizing plaster cast Central venous access Age >= 75 History of VTE Family history of VTE Factor V Leiden Prothrombin [id number] Lupus anticoagulant Anticardiolipin antibodies Elevated serum homocysteine Heparin-induced thrombocytopenia Other congenital or acquired thrombophilia Stroke (< 1 month) Elective arthroplasty Hip, pelvis, or leg fracture Acute spinal cord injury (< 1 month) Prophylaxis Regimen Total Risk Factor Score Risk Level Prophylaxis Regimen 0-1 Low Early ambulation 2 Moderate Order ONE of the following: *Sequential Compression Device (SCD) *Heparin 5000 units SQ BID 3-4 Higher Order ONE of the following medications: *Heparin 5000 units SQ TID *Enoxaparin/Lovenox 40 mg SQ daily (WT < 150 kg, CrCl > 30 mL/min) *Enoxaparin/Lovenox 30 mg SQ daily (WT < 150 kg, CrCl > 10-29 mL/min) *Enoxaparin/Lovenox 30 mg SQ BID (WT < 150 kg, CrCl > 30 mL/min) AND/OR *Sequential Compression Device (SCD) 5 or more Highest Order ONE of the following medications: *Heparin 5000 units SQ TID (Preferred with Epidurals) *Enoxaparin/Lovenox 40 mg SQ daily (WT < 150 kg, CrCl > 30 mL/min) *Enoxaparin/Lovenox 30 mg SQ daily (WT < 150 kg, CrCl > 10-29 mL/min) *Enoxaparin/Lovenox 30 mg SQ BID (WT < 150 kg, CrCl > 30 mL/min) AND *Sequential Compression Device (SCD) Assessment and Plan Assessment and Plan Impression: Acute pulmonary embolism Recent surgery on October 20, 2017 cholecystectomy Morbid obesity with impaired ambulatory status post op Hypertension Plan: Patient was started on heparin drip in ER. Give him dose of lisinopril 5 mg by mouth one dose now. Telemetry monitoring. Patient is explained in detail regarding anticoagulation choices. She has not made up her mind yet. We will provide her with Coumadin book. She is explained that I will start her on to Eliquis starting this evening. She can think about it for now and if she rather takes a different anticoagulants, and to let the nurse know. I have discussed with ER skilled nursing case manager regarding Eliquis pricing for patient's insurance but they were not able to find out how much it would cost. start eliquis 10mg po twice a day for 7 days, followed by 5 mg by mouth twice a day. Patient is advised regarding weight reduction and possibility of doing gastric sleeve versus gastric bypass. Patient is considering about these options as well because she was advised for her PCP and surgeon Dr. Li She is informed of risk of morbid obesity which includes future congestive heart failure/sleep apnea/uncontrolled hypertension/diabetes/CVA/MIs/cancers. Discussed Condition With Patient, ER physician Physician Certification 2 Midnight Certification Type: Admission for Inpatient Services Order for Inpatient Services The services are ordered in accordance with Medicare regulations or non- Medicare payer requirements, as applicable. In the case of services not specified as inpatient-only, they are appropriately provided as inpatient services in accordance with the 2-midnight benchmark. Estimated LOS (days): 2 days is the estimated time the patient will need to remain in the hospital, assuming treatment plan goals are met and no additional complications. Post-Hospital Plan: Home Lamar Taylor MD Nov 02, 2017 11:37
[2017-11-02] MEDS ORDERED: LISINOPRIL 5 MG TAB PO ONE (12:00)
[2017-11-02] MEDS ORDERED: ACETAMINOPHEN 325 MG TAB PO PRN (16:45)
[2017-11-02] MEDS: SODIUM CHLORIDE 0.9% FLUSH 10 ML FLUSH IV FLUSH SCH (21:08)
[2017-11-02] MEDS: APIXABAN 5 MG TABLET PO SCH (21:08)
[2017-11-02] MEDS ORDERED: MORPHINE SULFATE 2 MG/ML INJ IV PUSH PRN (23:00)
[2017-11-03] VITALS (15 sets, daily range): BP systolic 124–168; BP diastolic 50–82; PULSE 66–99; RESP 18; TEMP 97.1–98.8; O2SAT 92–98
[2017-11-03 08:30] LABS: AUTOMATED NEUTROPHIL # 5.6 TH/MM3 (1.8-7.7); BASOPHIL % 0.5 % (0.0-2.0); EOSINOPHIL # 0.2 TH/MM3 (0-0.4); EOSINOPHIL % 2.6 % (0.0-4.0); HEMATOCRIT 36.8 % (35.0-46.0); HEMOGLOBIN 11.9 GM/DL (11.6-15.3); LYMPH % 20.5 % (9.0-44.0); LYMPHOCYTE # 1.7 TH/MM3 (1.0-4.8); MEAN CELL VOLUME 91.9 FL (80.0-100.0); MEAN CORPUSCULAR HEMOGLOBIN 29.6 PG (27.0-34.0); MEAN CORPUSCULAR HGB CONC 32.2 % (32.0-36.0); MEAN PLATELET VOLUME 8.6 FL (7.0-11.0); MONO % 7.7 % (0.0-8.0); MONOCYTE # 0.6 TH/MM3 (0-0.9); NEUT % 68.7 % (16.0-70.0); PLATELET COUNT 294 TH/MM3 (150-450); RED BLOOD COUNT 4.01 MIL/MM3 (4.00-5.30); RED CELL DISTRIBUTION WIDTH 14.4 % (11.6-17.2); WHITE BLOOD COUNT 8.1 TH/MM3 (4.0-11.0)
[2017-11-03 08:47] LABS: BICARBONATE 30.5 MEQ/L (21.0-32.0); CALCIUM 9.1 MG/DL (8.5-10.1); CREATININE 0.78 MG/DL (0.50-1.00)
[2017-11-03] MEDS: SODIUM CHLORIDE 0.9% FLUSH 10 ML FLUSH IV FLUSH SCH ×2 (09:00→21:23)
[2017-11-03] MEDS: APIXABAN 5 MG TABLET PO SCH ×2 (09:10→21:20)
[2017-11-03] MEDS: LISINOPRIL 5 MG TAB PO SCH (09:11)
[2017-11-03] MEDS ORDERED: PNEUMOCOCCAL POLYVALENT INJ 25 MCG/0.5 ML SYR IM ONE (10:00)
--- NOTE | 2017-11-03 13:22 | HHI.PR ---
Subjective Remarks occasional mild pleuritic pain no fever, no hemoptysis Objective Vitals Vital Signs Date Time Temp Pulse Resp B/P (MAP) Pulse Ox O2 Delivery O2 Flow Rate FiO2 11/03/17 12:20 98.2 71 18 124/76 (92) 92 11/03/17 08:25 98.0 77 18 145/65 (91) 97 11/03/17 04:50 97.1 79 18 138/50 (79) 96 11/03/17 04:18 Nasal Cannula 2.00 11/03/17 04:00 97 11/03/17 00:34 98.0 78 18 165/73 (103) 96 11/03/17 00:12 98.0 85 18 168/82 (110) 98 11/03/17 00:00 Nasal Cannula 2.00 11/03/17 00:00 99 11/02/17 21:04 98.2 71 18 129/63 (85) 91 11/02/17 20:15 Nasal Cannula 2.00 11/02/17 20:00 60 11/02/17 16:22 98.2 74 18 152/69 (96) 96 11/02/17 15:36 81 18 153/72 (99) 98 I/O 11/02/17 11/02/17 11/02/17 11/03/17 11/03/17 11/03/17 06:59 14:59 22:59 06:59 14:59 22:59 Intake Total 240 ml 480 ml Balance 240 ml 480 ml Intake Oral 240 ml 480 ml # Voids 2 # Bowel Movements 0 Result Diagram: 11/03/17 0647 11/03/17 0647 Imaging Last Impressions Chest X-Ray 11/02/17 0342 Signed Impressions: Service Date/Time: Thursday, November 02, 2017 04:05 - CONCLUSION: No acute disease. Hosea Lopez MD Lower Extremity Ultrasound 11/02/17 0000 Signed Impressions: Service Date/Time: Thursday, November 02, 2017 07:57 - CONCLUSION: Negative for deep venous thrombosis. Damon Morris MD CT Angiography 11/02/17 0000 Signed Impressions: Service Date/Time: Thursday, November 02, 2017 07:29 - CONCLUSION: 1. There is a filling defect in a branch of the right pulmonary artery feeding the posterior right lower lung characteristic of a pulmonary embolus. 2. Focal parenchymal consolidation in the posterior right lower lung. Given the above finding this maybe a focal pulmonary infarct. Modesto Fenton MD Objective Remarks awake and alert, no acute distress obese anicteric lungs- no rales regular rular rhythm abdomen soft, non tender extremiteis no edema, no calf selling or tenderness A/P Assessment and Plan Impression: Acute pulmonary embolism Recent surgery on October 20, 2017 cholecystectomy Morbid obesity with impaired ambulatory status post op Hypertension -started eliquis 10mg po twice a day for 7 days 11/02 , followed by 5 mg by mouth twice a day. -Lisinopril 5 mg po daily ANIL- suspect patient working on weight reduction family states she does snores at night- no apneic episodes noted advised ff up with PCP - Dr. Liban Willoughby for sleep studies Patient is advised regarding weight reduction and possibility of doing gastric sleeve versus gastric bypass.- on admission Patient is considering about these options as well because she was advised for her PCP and surgeon Dr. Li She is informed of risk of morbid obesity which includes future congestive heart failure/sleep apnea/uncontrolled hypertension/diabetes/CVA/MIs/cancers. Discussed Condition With Patient and family travis ask CM to asist with Horace MONTEZ today if arranged Dagoberto Tejada MD Nov 03, 2017 13:22
[2017-11-04] VITALS: PULSE 68
[2017-11-04] MEDS ORDERED: MORPHINE SULFATE 2 MG/ML INJ IV PUSH ONE (00:15)
[2017-11-04 04:00] VITALS: PULSE 80
[2017-11-04 04:30] VITALS: BP 149/70; PULSE 73; RESP 20; TEMP 97.3; O2SAT 93
[2017-11-04 08:00] VITALS: BP_SYST 136; BP_SYST 155; BP_DIAS 62; BP_DIAS 67; PULSE 69; PULSE 77; RESP 14; RESP 18; TEMP 97.5; O2SAT 95; O2SAT 99
[2017-11-04] MEDS: APIXABAN 5 MG TABLET PO SCH (08:40)
[2017-11-04] MEDS: LISINOPRIL 5 MG TAB PO SCH (08:40)
[2017-11-04] MEDS: SODIUM CHLORIDE 0.9% FLUSH 10 ML FLUSH IV FLUSH SCH (08:42)
[2017-11-04 09:56] VITALS: O2SAT 94
[2017-11-04] MEDS ORDERED: OXYGENDME NAS.CANULA (11:20)
[2017-11-04 12:00] VITALS: BP 148/68; PULSE 71; RESP 18; TEMP 97.7; O2SAT 97
--- NOTE | 2017-11-04 12:01 | HHI.PR ---
Subjective Remarks resting comfortably ambulated with aptient- desaturated but appears comfortable- qualifies for home 02 discussed with her need sleep studies Objective Vitals Vital Signs Date Time Temp Pulse Resp B/P (MAP) Pulse Ox O2 Delivery O2 Flow Rate FiO2 11/04/17 09:56 94 Nasal Cannula 2.00 11/04/17 08:00 97.5 77 14 155/67 (96) 99 11/04/17 08:00 97.5 69 18 136/62 (86) 95 11/04/17 07:15 94 Nasal Cannula 2.00 11/04/17 04:30 97.3 73 20 149/70 (96) 93 11/04/17 04:00 80 11/04/17 04:00 Nasal Cannula 2.00 11/04/17 00:00 68 11/03/17 23:47 98.3 77 18 127/62 (83) 94 11/03/17 21:30 Nasal Cannula 2.00 11/03/17 20:50 98.8 75 18 135/63 (87) 98 11/03/17 20:00 76 11/03/17 18:38 94 Nasal Cannula 2.00 11/03/17 16:05 98.3 72 18 136/65 (88) 98 11/03/17 16:00 66 11/03/17 13:23 94 Nasal Cannula 2.00 11/03/17 12:20 98.2 71 18 124/76 (92) 92 11/03/17 12:00 69 I/O 11/03/17 11/03/17 11/03/17 11/04/17 11/04/17 11/04/17 07:00 15:00 23:00 07:00 15:00 23:00 Intake Total 480 ml 600 ml 960 ml Balance 480 ml 600 ml 960 ml Intake Oral 480 ml 600 ml 960 ml # Voids 2 2 2 # Bowel Movements 0 0 0 Result Diagram: 11/03/17 0647 11/03/17 0647 Imaging Last Impressions Chest X-Ray 11/02/17 0342 Signed Impressions: Service Date/Time: Thursday, November 02, 2017 04:05 - CONCLUSION: No acute disease. Hosea Lopez MD Lower Extremity Ultrasound 11/02/17 0000 Signed Impressions: Service Date/Time: Thursday, November 02, 2017 07:57 - CONCLUSION: Negative for deep venous thrombosis. Damon Morris MD CT Angiography 11/02/17 0000 Signed Impressions: Service Date/Time: Thursday, November 02, 2017 07:29 - CONCLUSION: 1. There is a filling defect in a branch of the right pulmonary artery feeding the posterior right lower lung characteristic of a pulmonary embolus. 2. Focal parenchymal consolidation in the posterior right lower lung. Given the above finding this maybe a focal pulmonary infarct. Modesto Fenton MD Objective Remarks awake and alert, no acute distress, on NC obese anicteric lungs- no rales regular rhythm abdomen soft, non tender extremities no edema, no calf selling or tenderness A/P Assessment and Plan Impression: Acute pulmonary embolism Recent surgery on October 20, 2017 cholecystectomy Morbid obesity with impaired ambulatory status post op Hypertension -started eliquis 10mg po twice a day for 7 days till 11/09 , followed by 5 mg by mouth twice a day.starting 11/10 -Lisinopril 5 mg po daily ANIL- suspect patient working on weight reduction family states she does snores at night- no apneic episodes noted advised ff up with PCP - Dr. Liban Willoughby for sleep studies Patient is advised regarding weight reduction and possibility of doing gastric sleeve versus gastric bypass.- on admission Patient is considering about these options as well because she was advised for her PCP and surgeon Dr. Li She is informed of risk of morbid obesity which includes future congestive heart failure/sleep apnea/uncontrolled hypertension/diabetes/CVA/MIs/cancers. Discussed Condition With Patient and family travis ask CM to asist with Horace MONTEZ today if arranged Dagoberto Tejada MD Nov 04, 2017 12:01
[2017-11-04] MEDS ORDERED: APIX5TAB PO (12:05)
[2017-11-09] MEDS ORDERED: APIXABAN 5 MG TABLET PO SCH (21:00)
[2017-11-12] MEDS ORDERED: APIXABAN 5 MG TABLET PO SCH (21:00)
== END 2017-11-04 17:13 | disposition home or self-care (01) | DRG 176 ==
LOC: NEPE 01:06 → NEDA 08:51 → N04A 15:49
PROVIDERS: ADMIT Internal Medicine; ATTEND Internal Medicine
DX: I26.99 Other pulmonary embolism without acute cor pulmonale (principal); Z68.43 Body mass index [BMI] 50.0-59.9, adult; E66.01 Morbid (severe) obesity due to excess calories; I10 Essential (primary) hypertension; Z98.890 Other specified postprocedural states; G47.33 Obstructive sleep apnea (adult) (pediatric)
CPT/HCPCS: 71045; 71275; 80048; 80053; 82550; 82552; 83690; 83735; 84484; 85025; 85379; 85610; 85730; 93005; 93971; 94618; 96374; 96375; J1644; J2270; Q9967

== ENCOUNTER → 2017-12-13 | Outpatient (CLI) | payer OTHER ==
[~2017-12-13] MED LIST changes: +APIX5TAB PO; +OXYGENDME NAS.CANULA
[2017-12-13 10:24] LABS: HEMATOCRIT 35.6 % (35.0-46.0); HEMOGLOBIN 11.5 GM/DL (11.6-15.3); MEAN CELL VOLUME 88.2 FL (80.0-100.0); MEAN CORPUSCULAR HEMOGLOBIN 28.6 PG (27.0-34.0); MEAN CORPUSCULAR HGB CONC 32.4 % (32.0-36.0); MEAN PLATELET VOLUME 8.7 FL (7.0-11.0); PLATELET COUNT 292 TH/MM3 (150-450); RED BLOOD COUNT 4.04 MIL/MM3 (4.00-5.30); RED CELL DISTRIBUTION WIDTH 14.4 % (11.6-17.2)
[2017-12-13 10:36] LABS: ALBUMIN 3.1 GM/DL (3.4-5.0); AST (GOT) 13 U/L (15-37); BICARBONATE 30.6 MEQ/L (21.0-32.0); BLOOD UREA NITROGEN 11 MG/DL (7-18); CALCIUM 8.6 MG/DL (8.5-10.1); CHLORIDE 106 MEQ/L (98-107); CHOLESTEROL 152 MG/DL (120-200); CREATININE 0.94 MG/DL (0.50-1.00); GLOMERULAR FILTRATION RATE 75 ML/MIN (>89); SODIUM (NA) 144 MEQ/L (136-145); TRIGLYCERIDES 81 MG/DL (42-150)
[2017-12-13 10:37] LABS: GLUCOSE,FASTING 103 MG/DL (74-99)
[2017-12-13 11:02] LABS: ALKALINE PHOSPHATASE 93 U/L (45-117); ALT (GPT) 15 U/L (10-53); CHOLESTEROL/ HDL RATIO 2.18 RATIO; FOLATE 5.9 NG/ML (3.1-17.5); HDL CHOLESTEROL 69.5 MG/DL (40.0-60.0); IRON (FE) 52 MCG/DL (50-170); LDL CHOLESTEROL 66 MG/DL (0-99); TOTAL BILIRUBIN ADULT 0.4 MG/DL (0.2-1.0); TOTAL IRON BINDING CAPACITY 307 MCG/DL (250-450); TOTAL PROTEIN 7.5 GM/DL (6.4-8.2)
== END ==
LOC: PLAB 06:52
PROVIDERS: ATTEND Family Medicine
DX: I10 Essential (primary) hypertension (principal); D64.9 Anemia, unspecified; R60.0 Localized edema
CPT/HCPCS: 36415; 80053; 80061; 82607; 82746; 83540; 83550; 84443; 85027

== ENCOUNTER 2018-01-26 02:11 | Emergency (ER) | payer OTHER ==
[2018-01-26 02:16] VITALS: BP 204/113; PULSE 82; RESP 20; TEMP 98.6; O2SAT 96
[2018-01-26] MEDS ORDERED: KETOROLAC TROMETHAMINE 60 MG/2 ML (IM) VIAL IM ONE (02:45)
--- NOTE | 2018-01-26 02:45 | PD ---
HPI Chief Complaint: Back/ Neck Pain or Injury Time Seen by Provider: 02:35 Travel History International Travel<30 days: No Contact w/Intl Traveler<30days: No Traveled to known affect area: No History of Present Illness HPI 52yo F with PMH of PE on eliquis, morbid obesity, HTN on lisinopril 40mg here with right buttock pain that radiates down the posterior right leg for 3 days. Pt had sciatica before and this feels exactly like that. Pain is sharp, shooting down and worst with movement and certain positions. Moderate severity. Denies any trauma, focal weakness or numbness, urinary complaints, back pain, fever, chest pain, sob, n/v, abdominal pain. History Social History Alcohol Use: No Tobacco Use: No Allergies-Medications (Allergen,Severity, Reaction): Coded Allergies: No Known Allergies (Verified Allergy, Unknown, 01/26/18) Reported Meds & Prescriptions Reported Meds & Active Scripts Active Medrol Dosepak (Methylprednisolone) 4 Mg Dspk 4 Mg PO DIRECTED Per Pharmacist direction Robaxin (Methocarbamol) 500 Mg Tab 500 Mg PO QID PRN Robaxin (Methocarbamol) 750 Mg Tab 750 Mg PO TID Tylenol (Acetaminophen) 325 Mg Tab 650 Mg PO Q6H PRN Eliquis (Apixaban) 5 Mg Tab 10 Mg PO BID 5 Days Oxygen (O2) Device Liter IMELDA.CANULA CONTINUOUS Oxygen Concentrator Portable Gaseous 2 L/min via Nasal Canula Continuous For 99 months Reported Lisinopril 5 Mg Tab 40 Mg PO DAILY Review of Systems Except as stated in HPI: all other systems reviewed are Neg Physical Exam Narrative GENERAL: 52yo F in mild distress. Morbidly obese. SKIN: Focused skin assessment warm/dry. HEAD: Atraumatic. Normocephalic. EYES: Pupils equal and round. No scleral icterus. No injection or drainage. ENT: No nasal bleeding or discharge. Mucous membranes pink and moist. NECK: Trachea midline. No JVD. CARDIOVASCULAR: Regular rate and rhythm. No murmur appreciated. RESPIRATORY: No accessory muscle use. Clear to auscultation. Breath sounds equal bilaterally. GASTROINTESTINAL: Abdomen soft, non-tender, nondistended. BACK: No midline ttp thoracic or lumbar spine. MUSCULOSKELETAL: +TTP mid gluteus goyo on right. No ttp right hip. Positive straight leg test on right. No calf tenderness bilaterally. Distal pulses intact. No erythema. NEUROLOGICAL: Awake and alert. No obvious cranial nerve deficits. Motor grossly within normal limits. Normal speech. PSYCHIATRIC: Appropriate mood and affect; insight and judgment normal. Data Data Last Documented VS Orders Orders Ketorolac Inj (Toradol Inj) (01/26/18 02:45) Lisinopril (Prinivil) (01/26/18 09:00) Lisinopril (Prinivil) (01/26/18 03:21) Diazepam (Valium) (01/26/18 03:30) Oxycodone-Acetamin 5-325 Mg (Percocet (01/26/18 03:30) Clonidine (Catapres) (01/26/18 04:45) Ed Discharge Order (01/26/18 05:22) [facility] Medical Decision Making Medical Screen Exam Complete: Yes Emergency Medical Condition: Yes Differential Diagnosis Sciatic pain vs. musculoskeletal pain vs. uncontrolled HTN Narrative Course 52yo F with morbid obesity and HTN here with c/o right buttock pain radiating down right leg. Impression is consistent with sciatica. Pt denies any trauma and has no signs of infection or focal neurologic deficits. Pt's blood pressure is markedly elevated but she forgot to take her lisinopril 40mg today. Pt denies any headache, visual changes, chest pain, sob, n/v, abdominal pain, focal weakness or numbness. Said she is compliant with her eliquis. Pt given her usual dose of lisinopril but BP was still high so gave clonidine which improved BP to 186/85. Pt is still asymptomatic. Pt given toradol with some improvement of pain. Pt then given valium and percocet and pain has resolved. Pt feels much better. Return precautions given. Diagnosis Primary Impression: Sciatic leg pain Patient Instructions: General Instructions Departure Forms: Tests/Procedures Additional Instructions: Please follow up with your primary care physician in 2-3 days. Return to the ED if symptoms worsen. Med/Other Pt SpecificInfo: Prescription(s) given Scripts Methocarbamol (Robaxin) 750 Mg Tab 750 MG PO TID for Muscle Spasm, #7 TAB 0 Refills Prov: Shauna Skinner DO 01/26/18 Acetaminophen (Tylenol) 325 Mg Tab 650 MG PO Q6H Y for PAIN SCALE 1 TO 4, #20 TAB 0 Refills Prov: Shauna Skinner DO 01/26/18 Disposition: 01 DISCHARGE HOME Condition: Stable Shauna Skinner DO January 26, 2018 02:45
[2018-01-26] MEDS ORDERED: LISINOPRIL 20 MG TAB PO STA (03:21)
[2018-01-26] MEDS ORDERED: DIAZEPAM 5 MG TAB PO ONE (03:30)
[2018-01-26] MEDS ORDERED: oxyCODONE/ACETAMINOPHEN 5 MG/325 MG TAB PO ONE (03:30)
[2018-01-26 04:33] VITALS: BP 209/90
[2018-01-26] MEDS ORDERED: cloNIDine HCL 0.1 MG TAB PO ONE (04:45)
[2018-01-26 05:17] VITALS: BP 186/85
[2018-01-26] MEDS ORDERED: TYLE325T PO (05:22)
[2018-01-26] MEDS ORDERED: ROBA750T PO (05:22)
[2018-01-26] MEDS ORDERED: LISINOPRIL 20 MG TAB PO SCH (09:00)
== END 2018-01-26 05:32 | disposition home or self-care (01) ==
LOC: NEPC 02:11
DX: M54.31 Sciatica, right side (principal); E66.01 Morbid (severe) obesity due to excess calories; I10 Essential (primary) hypertension
CPT/HCPCS: 96372; 99283; J1885

== ENCOUNTER 2018-01-28 10:05 | Emergency (ER) | payer OTHER ==
[~2018-01-28] VITALS: Ht 180.3 cm; Wt 200.0 kg
[~2018-01-28 10:05] MED LIST changes: +ROBA750T PO; +TYLE325T PO
[2018-01-28 10:07] VITALS: BP 226/102; PULSE 79; RESP 20; TEMP 98.2
[2018-01-28 10:25] VITALS: BP 195/113; PULSE 77; RESP 18; O2SAT 96
[2018-01-28] MEDS ORDERED: MEDR4PAK PO (10:54)
[2018-01-28] MEDS ORDERED: ROBA500T PO (10:54)
--- NOTE | 2018-01-28 10:54 | PD ---
HPI Chief Complaint: Back/ Neck Pain or Injury Time Seen by Provider: 10:19 Travel History International Travel<30 days: No Contact w/Intl Traveler<30days: No Traveled to known affect area: No History of Present Illness HPI 52-year-old female presents to the emergency department with complaint of right buttock pain with shooting pain down her right leg 1 week. Has history of sciatica and history of low back surgery in 1993 and says her sciatic pain is consistent with her pain now. She was seen here on morning and was given Robaxin which she has been taking with no relief of symptoms. She has also tried taking Lortab from her [id number] with minimal relief of symptoms. Has tried taking Tylenol. Denies dysuria. Denies encopresis, incontinence, saddle anesthesias. Denies IV drug use or cancer. Denies fever, vomiting, abdominal pain. Denies paresthesias, loss of sensation, decreased range of motion, decreased strength to bilateral lower extremities. Rates pain 10/10. Worse with standing. Describes as shooting, stabbing pain. Pain is constant. No known relieving factors. Primary care provider is Dr. Lizarraga. No known allergies. History of hypertension and PE. Takes Eliquis. Takes lisinopril 40 mg daily for hypertension and did not take her medication this morning. Patient has elevated blood pressure in the ER and is asymptomatic. Has no other medical complaints. No other modifying factors or associated signs and symptoms. PFSH Past Medical History Hx Anticoagulant Therapy: Yes Asthma: No Heart Rhythm Problems: No Cancer: No Cardiovascular Problems: Yes High Cholesterol: No Chest Pain: No Congestive Heart Failure: No COPD: No Diabetes: No Diminished Hearing: No Endocrine: No Gastrointestinal Disorders: Yes (Gall bladder) GERD: No Genitourinary: No Hepatitis: No Hiatal Hernia: No Hypertension: Yes Immune Disorder: No Kidney Stones: No Musculoskeletal: Yes Neurologic: No Psychiatric: No Reproductive: No Respiratory: Yes Immunizations Current: Yes Renal Failure: No Sickle Cell Disease: No Sleep Apnea: No Thyroid Disease: No Ulcer: No ?: Not Past Surgical History Abdominal Surgery: No Arteriovenous Shunt: No Cardiac Surgery: No Cholecystectomy: Yes Ear Surgery: No Endocrine Surgery: No Eye Surgery: No Genitourinary Surgery: Yes (lap matt) Gynecologic Surgery: Yes (Complete hysterectomy) Hysterectomy: Yes Insulin Pump: No Joint Replacement: No Neurologic Surgery: Yes (Back surgery, ruptured disc lombar area (2002)) Oral Surgery: No Pacemaker: No Thoracic Surgery: No Other Surgery: Yes Social History Alcohol Use: No Tobacco Use: No Substance Use: No Allergies-Medications (Allergen,Severity, Reaction): Coded Allergies: No Known Allergies (Verified Allergy, Unknown, 01/26/18) Reported Meds & Prescriptions Reported Meds & Active Scripts Active Medrol Dosepak (Methylprednisolone) 4 Mg Dspk 4 Mg PO DIRECTED Per Pharmacist direction Robaxin (Methocarbamol) 500 Mg Tab 500 Mg PO QID PRN Robaxin (Methocarbamol) 750 Mg Tab 750 Mg PO TID Tylenol (Acetaminophen) 325 Mg Tab 650 Mg PO Q6H PRN Eliquis (Apixaban) 5 Mg Tab 10 Mg PO BID 5 Days Oxygen (O2) Device Liter IMELDA.CANULA CONTINUOUS Oxygen Concentrator Portable Gaseous 2 L/min via Nasal Canula Continuous For 99 months Reported Lisinopril 5 Mg Tab 40 Mg PO DAILY Review of Systems Except as stated in HPI: all other systems reviewed are Neg Physical Exam Narrative GENERAL: Well-nourished, well-developed black female patient, in no acute distress; afebrile, nontoxic-appearing; morbidly obese SKIN: Warm and dry. HEAD: Atraumatic. Normocephalic. EYES: Pupils equal and round. No scleral icterus. No injection or drainage. ENT: Mucosa pink and moist. Airway patent. NECK: Trachea midline. CARDIOVASCULAR: Regular rate. RESPIRATORY: No accessory muscle use. GASTROINTESTINAL: Morbidly obese. MUSCULOSKELETAL: Unable to perform full exam secondary to body habitus. bilateral lower extremities supple and non-tense with 2+ pedal pulses and sensory intact; with full range of motion and 5/5 strength. Active dorsiflexion and extension of bilateral feet. Ambulatory in room with normal gait. Sitting up in bed at 90. No obvious deformities. No clubbing. No cyanosis. No edema. BACK: No midline point tenderness on palpation of the lumbar spine. Tenderness on palpation of right buttocks/low back area. No obvious deformities. NEUROLOGICAL: Awake and alert. Oriented 3. No obvious cranial nerve deficits. Motor grossly within normal limits. Normal speech. Moves all extremities. 5/5 strength to all extremities. Sensory intact. PSYCHIATRIC: Appropriate mood and affect; insight and judgment normal. Data Data Last Documented VS Vital Signs Date Time Temp Pulse Resp B/P (MAP) Pulse Ox O2 Delivery O2 Flow Rate FiO2 01/28/18 10:25 77 18 195/113 (140) 96 Room Air 01/28/18 10:07 98.2 Orders Orders Ketorolac Inj (Toradol Inj) (01/28/18 11:00) Orphenadrine Inj (Norflex Inj) (01/28/18 11:00) Lisinopril (Prinivil) (01/28/18 11:00) Ed Discharge Order (01/28/18 10:54) [facility] Medical Decision Making Medical Screen Exam Complete: Yes Emergency Medical Condition: Yes Medical Record Reviewed: Yes Differential Diagnosis Sciatic leg pain, low back pain, acute exacerbation of chronic low back pain Narrative Course 52-year-old female presents with right sciatic leg pain. She was evaluated here on for the same complaint. Denies encopresis, incontinence, saddle anesthesias. Denies IV drug use or cancer. Patient is afebrile nontoxic pain. I did offer to check a urinalysis to rule out UTI/ pyelonephritis and she declined. Patient's blood pressure is elevated in the ER. She did not take her lisinopril this morning. She is asymptomatic. Lisinopril, Toradol, Norflex ordered. Medrol Dosepak, Robaxin prescribed for home. Instructed patient to follow up with primary care provider. Patient verbalizes understanding and agreement with treatment plan. Patient is medically cleared and stable for discharge. Discussed reasons to return to the emergency department. Patient agrees with treatment plan. The patients vital signs are stable and the patient is stable for outpatient follow-up and treatment. Patient discharged home, stable and in no acute distress. Diagnosis Primary Impression: Sciatic leg pain Referrals: Neurosurgeon Primary Care Physician Patient Instructions: General Instructions, Sciatica (ED) Additional Instructions: Tylenol as directed and as needed for pain Robaxin as prescribed and as needed for muscle spasms Heating pad and/or ice to affected area to reduce pain Avoid aggravating activities; increase activity as tolerated Follow-up with primary care provider Return to emergency department immediately with worsening of symptoms Med/Other Pt SpecificInfo: Prescription(s) given Scripts Methylprednisolone Dosepak (Medrol Dosepak) 4 Mg Dspk 4 MG PO DIRECTED, #1 DSPK 0 Refills Per Pharmacist direction Prov: Laura Barlow 01/28/18 Methocarbamol (Robaxin) 500 Mg Tab 500 MG PO QID Y for MUSCLE SPASM, #15 TAB 0 Refills Prov: Laura Barlow 01/28/18 Disposition: 01 DISCHARGE HOME Condition: Stable Laura Barlow January 28, 2018 10:54
[2018-01-28] MEDS ORDERED: ORPHENADRINE INJ 60 MG/2 ML AMP IM ONE (11:00)
[2018-01-28] MEDS ORDERED: LISINOPRIL 20 MG TAB PO SCH (11:00)
[2018-01-28] MEDS ORDERED: KETOROLAC TROMETHAMINE 60 MG/2 ML (IM) VIAL IM ONE (11:00)
== END 2018-01-28 11:21 | disposition home or self-care (01) ==
LOC: NEPD 10:05
DX: M54.31 Sciatica, right side (principal); I10 Essential (primary) hypertension
CPT/HCPCS: 96372; 99283; J1885; J2360

== ENCOUNTER → 2018-02-07 | Outpatient (CLI) | payer OTHER ==
[~2018-02-07] MED LIST changes: +MEDR4PAK PO; +ROBA500T PO
[2018-02-07 10:33] LABS: CREATININE 0.78 MG/DL (0.50-1.00)
== END ==
LOC: PLAB 07:28
PROVIDERS: ATTEND Internal Medicine
DX: I26.99 Other pulmonary embolism without acute cor pulmonale (principal)
CPT/HCPCS: 36415; 82565; 84520